=== PATIENT | male | born 1960 | race Hispanic/Latino ===

== ENCOUNTER 2016-09-04 20:36 | Emergency (ER) | payer OTHER ==
[~2016-09-04] VITALS: Ht 160 cm; Wt 59.0 kg
[~2016-09-04 20:36] MED LIST: TYLENOL #31 TAB PO
[2016-09-04 20:51] VITALS: BP 105/58
[2016-09-04] MEDS ORDERED: ZETIA10 M1 PO (20:52)
--- NOTE | 2016-09-04 21:15 | ED UPPER/LOWER EXTREMITY COMPL ---
History of Present Illness General Chief Complaint: General Adult Stated Complaint: "ONE OF MY FINGERS ARE ALWAYS COLD" Source: patient Exam Limitations: no limitations Vital Signs & Intake/Output Vital Signs & Intake/Output Vital Signs Date Time Temp Pulse Resp B/P Pulse O2 O2 Flow FiO2 Ox Delivery Rate 09/04 2050 97.3 75 16 105/58 98 Room Air Room Air ED Intake and Output 09/05 0000 09/04 1200 Intake Total 0 Output Total Balance 0 Intake, Oral 0 Patient 130 lb Weight Allergies Coded Allergies: NO KNOWN ALLERGIES (09/04/16) Reconcile Medications Ezetimibe (Zetia) 10 MG TABLET 1 TAB PO DAILY CHOL (Reported) Tylenol With Codeine (Tylenol With Codeine #3 Tablet) 300 MG-30 MG TABLET 1 TAB PO Q6 PAIN Triage Note: PT TO TRIAGE WITH LEFT WRONG RINGER PAIN AND A FEELING OF COLDNESS OR 2 WEEKS. PT STATES ITS ESPECIALLY BAD WHEN HE GOES OUT SIDE. DENIES CHANGE IN SENSATION. Triage Nurses Notes Reviewed? yes HPI: This patient is a 56-year-old male who presented to the emergency department today for evaluation left ring finger coldness. The patient reported that he has had intermittent feeling of cold in his left ring finger times one week. The patient reported that the coldness is worse when he goes out in the cold and sometimes he feels a, "pressure," and the tip of his ring finger. He denied any pain. The patient reported that he did have an appointment with his primary care physician this week, but did not address this issue. He reported that his wanted him to come to the emergency department the evening for an EKG and to make sure that this was not a problem with his heart. The patient denied any radiation of the pain. No arm pain. No numbness or tingling in his extremity. No chest pain. No palpitations. No difficult breathing. No abdominal pain. No fevers or chills. (SPEEDY GARCIA,FITO) Past History Travel History Traveled to [place] past 21 day No Medical History Any Pertinent Medical History? 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 No (FITO RUFF PA-C) Review of Systems Review of Systems Constitutional: Reports: no symptoms. EENTM: Reports: no symptoms. Respiratory: Reports: no symptoms. Cardiovascular: Reports: no symptoms. Gastrointestinal/Abdominal: Reports: no symptoms. Genitourinary: Reports: no symptoms. Musculoskeletal: Reports: no symptoms. Skin: Reports: see HPI. Neurological/Psychological: Reports: see HPI. All Other Systems: Reviewed and Negative (FITO RUFF PA-C) Physical Exam Physical Exam General Appearance: well developed/nourished, no apparent distress, alert, awake Comments: Well-developed well-nourished person in no acute distress HEENT: Normal EENT exam, moist mucous membranes Pupils equally round and reactive to light. Neck: Supple Back: Normal gait Cardiovascular: Regular rate and rhythm with no murmurs, rubs, or gallops. No carotid bruits Respiratory: Chest nontender. No respiratory distress. Breath sounds clear to auscultation bilaterally with no wheezes, rales, or rhonchi Left hand: Full range of motion of the digits. No bony or muscular deformities noted. No effusions or overlying erythema or ecchymosis to the joint spaces. No tenderness to palpation. Radial pulse 2+ and strong. Capillary refill less than 2 seconds. Sensation intact Neuro: Alert oriented x3, motor sensory normal, cranial nerves II through XII grossly intact. Skin: No appreciable rash on exposed skin, skin is warm and dry. Psych: Mood and affect is normal (FITO RUFF PA-C) Progress Differential Diagnosis: arterial insufficiency, cellulitis, compartment syndrome , contusion, dislocation, fracture, gout, septic arthritis, sprain, RAYNAUD'S SYNDROME, acs Plan of Care: Orders Procedure Date/time Status TROPONIN LEVEL 09/04 2109 Complete COMPREHENSIVE METABOLIC PANEL 09/04 2109 Complete CBC WITHOUT DIFFERENTIAL 09/04 2109 Complete EKG 09/04 2109 Active Laboratory Tests 09/04/162125: Anion Gap 9, Estimated GFR > 60, BUN/Creatinine Ratio 25.0, Glucose 116 H, Calcium 9.0, Total Bilirubin 0.3, AST 20, ALT 47, Alkaline Phosphatase 115, Troponin I < 0.01, Total Protein 6.0 L, Albumin 3.5, Globulin 2.5, Albumin/ Globulin Ratio 1.4, CBC w Diff NO MAN DIFF REQ, RBC 4.32 L, MCV 92.1, MCH 31.0, RDW 13.6, MPV 8.9, Gran % 65.3, Lymphocytes % 25.9, Monocytes % 7.4, Eosinophils % 0.6, Basophils % 0.8, Absolute Granulocytes 6.7 H, Absolute Lymphocytes 2.7, Absolute Monocytes 0.8 H, Absolute Eosinophils 0.1, Absolute Basophils 0.1, PUBS MCHC 33.7 Initial ED EKG: normal axis, normal intervals, normal sinus rhythm, no ST T wave changes, 66 BPM (SPEEDY GARCIA,FITO) Departure Departure Disposition: HOME OR SELF CARE Condition: Stable Clinical Impression Primary Impression: Sensation of cold in finger Referrals: HANNAH GARZA APRN Additional Instructions: Please call your primary care physician tomorrow to schedule a follow-up appointment. Limit exposure of your hand to cold weather when possible. Return for any worsening symptoms or concerns. Departure Forms: Customer Survey General Discharge Information (FITO RUFF PA-C) PA/CLERK ENTRY LEVEL Co-Sign Statement Statement: ED Attending supervision documentation- [] I saw and evaluated the patient. I have also reviewed all the pertinent lab results and diagnostic results. I agree with the findings and the plan of care as documented in the PA's/CLERK ENTRY LEVEL's documentation. [X I have reviewed the ED Record and agree with the PA's/CLERK ENTRY LEVEL's documentation. [] Additions or exceptions (if any) to the PAs/CLERK ENTRY LEVEL's note and plan are summarized below: [] (RAMAN ISRAEL,LEROY Deras)
[2016-09-04 21:46] LABS: ABSOLUTE BASOPHIL COUNT 0.1 /CUMM (0.0-0.2); ABSOLUTE EOSINOPHIL COUNT 0.1 /CUMM (0.0-0.7); ABSOLUTE GRANULOCYTE CT 6.7 /CUMM (1.4-6.5); ABSOLUTE LYMPH COUNT 2.7 /CUMM (1.2-3.4); ABSOLUTE MONOCYTE COUNT 0.8 /CUMM (0.10-0.60); BASOPHIL % 0.8 % (0.0-2.0); EOSINOPHIL % 0.6 % (0-5); GRANULOCYTE % 65.3 % (42.2-75.2); HEMATOCRIT 39.8 % (42-52); MEAN CORPUSCULAR HGB CONC 33.7 G/DL (33.0-37.0); MEAN CORPUSCULAR VOLUME 92.1 FL (80.0-94.0); MEAN PLATELET VOLUME 8.9 FL (7.4-10.4); PLATELET COUNT 338 /CUMM (130-400); RBC DISTRIBUTION WIDTH 13.6 % (11.5-14.5); RED BLOOD CELL CT 4.32 /CUMM (4.70-6.10); WHITE BLOOD CELL COUNT 10.2 /CUMM (4.8-10.8)
== END 2016-09-04 22:18 ==
LOC: ERH 20:36
PROVIDERS: Physician Assistant
DX: R20.8 Other disturbances of skin sensation (principal)
CPT/HCPCS: 93005; 93010

== ENCOUNTER 2016-12-16 18:19 | Emergency (ER) | payer OTHER ==
[~2016-12-16 18:19] MED LIST changes: +ZETIA10 M1 PO
--- NOTE | 2016-12-16 18:40 | ED CARDIAC/CP/PALPITATIONS ---
History of Present Illness General Chief Complaint: Chest Pain Stated Complaint: CP,LT ARM DISCOMFORT Source: patient, family, old records Exam Limitations: no limitations Vital Signs & Intake/Output Vital Signs & Intake/Output Vital Signs Date Time Temp Pulse Resp B/P B/P Pulse O2 O2 Flow FiO2 Mean Ox Delivery Rate 12/16 2245 96.5 73 16 119/80 96 Room Air 12/16 2103 98.2 84 17 128/72 98 Room Air 12/16 1903 80 16 131/69 96 Room Air 12/16 1847 98 12/16 1836 98.8 86 16 121/75 96 Room Air ED Intake and Output 12/17 0000 12/16 1200 Intake Total 0 Output Total Balance 0 Intake, Oral 0 Patient 134 lb Weight Weight Standing Scale Measurement Method Allergies Coded Allergies: NO KNOWN ALLERGIES (09/04/16) Triage Note: TRIAGE: L SIDED CP RADIATING INTO L SHOULDER X20 MINS. STATES HE WAS PLAYING WITH CHILDREN BUT DENIES STRENUOUS ACTIVITY. DENIES SOB OR DIAPHORESIS. Triage Nurses Notes Reviewed? yes HPI: Patient is a 56-year-old male presents complaining of midsternal chest pain that radiates to his left upper extremity. Symptoms onset at approximately 6 PM today. Pain is a pressure sensation currently 3 out of 10, no exacerbating or alleviating factors. Patient has not taken any medication prior to arrival for her symptoms. Patient denies nausea, diaphoresis, dyspnea, lower extremity pain , lower extremity swelling. (UNA ESTEVEZ,RACHEL) Reconcile Medications Ezetimibe (Zetia) 10 MG TABLET 1 TAB PO DAILY CHOL (Reported) Ibuprofen (Advil) 200 MG CAPSULE 3 TAB PO PRN PAIN (Reported) Lidocaine 5 % ADH..PATCH 1 PAT TOP PRN PAIN (Reported) Nicotine (Nicotine Patch) 7 MG/24 HOUR PATCH.TD24 1 PAT TD DAILY SMOKING CESSATION (Reported) (CHARU ISRAEL,ISAIAH) Past History Travel History Traveled to [place] past 21 day No Medical History Any Pertinent Medical History? 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 No (RACHEL MARSHALL) Review of Systems Review of Systems Constitutional: Denies: chills, fever. EENTM: Reports: no symptoms. Respiratory: Denies: cough, short of breath. Cardiovascular: Reports: see HPI. GI: Denies: abdominal pain, nausea, vomiting. Genitourinary: Reports: no symptoms. Musculoskeletal: Reports: joint pain (hip, chronic, unchanged). Denies: back pain. Skin: Reports: no symptoms. Neurological/Psychological: Denies: headache, numbness, paresthesia. Hematologic/Endocrine: Denies: bruising, bleeding. Immunologic/Allergic: Denies: splenectomy. (RACHEL MARSHALL) Physical Exam Physical Exam General Appearance: well developed/nourished, alert, awake Head: atraumatic, normal appearance Eyes: Bilateral: normal appearance, PERRL, EOMI. Ears, Nose, Throat: normal pharynx, hearing grossly normal Neck: normal inspection, supple, full range of motion Respiratory: normal breath sounds, chest non-tender, no respiratory distress, lungs clear Cardiovascular: regular rate/rhythm, NO APPRECIABLE MURMUR Peripheral Pulses: 2+ radial (R), 2+ radial (L), 2+ dorsalis pedis (R), 2+ dorsalis pedis (L) Gastrointestinal: soft, non-tender Back: normal inspection, normal range of motion Extremities: normal inspection, normal capillary refill, normal range of motion, no edema, NO CALF TENDERNESS Neurologic/Psych: no motor/sensory deficits, awake, alert, oriented x 3, normal mood/affect Skin: intact, normal color, warm/dry Lymphatic: no anterior cervical yissel Core Measures ACS in differential dx? Yes ASA ordered for poss ACS? Yes-ordered Severe Sepsis Present: No Septic Shock Present: No (RACHEL MARSHALL) Progress Differential Diagnosis: AMI, aortic dissection, musculoskeletal pain, pneumonia, pneumothorax, PSVT, pulmonary embolism, unstable angina Plan of Care: Orders Procedure Date/time Status TROPONIN LEVEL 12/16 2150 Complete EKG 12/16 215 Active Telemetry/Virtual Office Assistant 12/16 1854 Active TROPONIN LEVEL 12/16 1835 Complete COMPREHENSIVE METABOLIC PANEL 12/16 1835 Complete CBC WITHOUT DIFFERENTIAL 12/16 183 Complete EKG 12/16 1820 Active Laboratory Tests 12/16/16 2146: Troponin I < 0.01 12/16/16 1851: Anion Gap 9, Estimated GFR > 60, BUN/Creatinine Ratio 24.4, Glucose 124 H, Calcium 9.2, Total Bilirubin 0.4, AST 21, ALT 55, Alkaline Phosphatase 128 H, Troponin I < 0.01, Total Protein 6.5, Albumin 4.1, Globulin 2.4, Albumin/ Globulin Ratio 1.7, CBC w Diff NO MAN DIFF REQ, RBC 4.67 L, MCV 91.7, MCH 30.8, RDW 13.8, MPV 8.4, Gran % 67.8, Lymphocytes % 22.0, Monocytes % 7.6, Eosinophils % 1.4, Basophils % 1.2, Absolute Granulocytes 7.0 H, Absolute Lymphocytes 2.3, Absolute Monocytes 0.8 H, Absolute Eosinophils 0.1, Absolute Basophils 0.1, PUBS MCHC 33.6 1924: Patient is now chest pain free after aspirin and 1 dose of 0.4 mg sublingual nitroglycerin 1954: Discussed with Dr. Aldana: if patient remains chest pain free then can obtain repeat ekg and troponin. If negative then can have follow up in the office tomorrow for stress test. 1999: Plan for repeat troponin and ekg discussed with patient and his son. Patient remains chest pain free. 2239: Results of repeat ekg and troponin discussed with patient. Patient remains symptom free. Appears stable for discharge with close outpatient follow up. Instructed to call Dr. Aldana tomorrow morning and to return to the ER if any return/worsening of symptoms. (RACHEL MARSHALL) Diagnostic Imaging: Viewed by Me: Radiology Read. Discussed w/RAD: Radiology Read. CXR Impression: no acute abnormality, no infiltrates, normal size heart, normal mediastinum Initial ED EKG: normal axis, normal intervals, normal p-waves, normal sinus rhythm, no ST T wave changes, 1mm q waves in the inferior leads, similar to previous ekg. 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 Call in the morning for appointment. Return to the ER if chest pain returns, difficulty breathing or worsening of symptoms. Departure Forms: Customer Survey General Discharge Information (RACHEL MARSHALL) PA/WET PAN OPERATOR Co-Sign Statement Statement: ED Attending supervision documentation- [X] I saw and evaluated the patient. I have also reviewed all the pertinent lab results and diagnostic results. I agree with the findings and the plan of care as documented in the PA's/WET PAN OPERATOR's documentation. [X] I have reviewed the ED Record and agree with the PA's/WET PAN OPERATOR's documentation. [] Additions or exceptions (if any) to the PAs/WET PAN OPERATOR's note and plan are summarized below: [] (CHARU ISRAEL,ISAIAH) Critical Care Note Critical Care Note Critical Care Time: non-applicable (RACHEL MARSHALL)
[2016-12-16] MEDS ORDERED: ADVIL200 M1 PO (18:46)
[2016-12-16] MEDS ORDERED: NICOTINE PATCH1 EAC1 TD (18:47)
[2016-12-16] MEDS ORDERED: LIDOCAINE1 EACH TOP (18:47)
[2016-12-16 18:58] LABS: ABSOLUTE BASOPHIL COUNT 0.1 /CUMM (0.0-0.2); ABSOLUTE EOSINOPHIL COUNT 0.1 /CUMM (0.0-0.7); ABSOLUTE LYMPH COUNT 2.3 /CUMM (1.2-3.4); ABSOLUTE MONOCYTE COUNT 0.8 /CUMM (0.10-0.60); BASOPHIL % 1.2 % (0.0-2.0); EOSINOPHIL % 1.4 % (0-5); GRANULOCYTE % 67.8 % (42.2-75.2); HEMATOCRIT 42.8 % (42-52); MEAN CORPUSCULAR HGB 30.8 PG (27.0-31.0); MEAN CORPUSCULAR HGB CONC 33.6 G/DL (33.0-37.0); MEAN CORPUSCULAR VOLUME 91.7 FL (80.0-94.0); MEAN PLATELET VOLUME 8.4 FL (7.4-10.4); PLATELET COUNT 300 /CUMM (130-400); RBC DISTRIBUTION WIDTH 13.8 % (11.5-14.5); RED BLOOD CELL CT 4.67 /CUMM (4.70-6.10); WHITE BLOOD CELL COUNT 10.3 /CUMM (4.8-10.8)
--- NOTE | 2016-12-16 19:45 | RADIOLOGY REPORT ---
EXAMINATION: XR PORTABLE CHEST CLINICAL INFORMATION: Chest pain. COMPARISON: Multiple priors, most recent chest radiographs dated 12/09/2015. TECHNIQUE: Portable AP semiupright view of the chest was obtained. FINDINGS: No airspace consolidation. No pleural effusion or pneumothorax. Stable cardiomediastinal silhouette. No acute osseous abnormality. IMPRESSION: No acute cardiopulmonary process. No significant interval change since the prior examination.
[2016-12-16 22:45] VITALS: BP 119/80
== END 2016-12-16 22:46 ==
LOC: ERH 18:19
PROVIDERS: Emergency Medicine
DX: R07.89 Other chest pain (principal)
CPT/HCPCS: 93005; 93010; J3490

== ENCOUNTER → 2017-12-15 | Day surgery (SDC) | payer OTHER ==
[~2017-12-15] VITALS: Ht 157.5 cm; Wt 59.4 kg
[~2017-12-15] MED LIST changes: +ADVIL200 M1 PO; +HYDROXYZINE HCL50 M1 PO; +LEVAQUIN500 M1 PO; +LIDOCAINE1 EACH TOP; +NICOTINE PATCH1 EAC1 TD; +PREDNISONE10 M2 PO; +VALTREX1000 MG PO
--- NOTE | 2017-12-15 09:07 | Operative Report ---
Operative/Inv Procedure Report Surgery Date: 12/15/17 Name of Procedure: left ESWL Pre-Operative Diagnosis: left LP stone Post-Operative Diagnosis: same Estimated Blood Loss: scant Surgeon/Abrasive Water Jet Cutter Operator: Bridgette Mcgrath MD Anesthesia: local monitored anesthesi Complications: none Condition: stable Operative Indication: left renal stone Operative/Procedure Note Note: 57yo male with a history of left LP renal stone with renal colic. He was given the options of ESWL vs Ureteroscopy with laserlithotripsy and he opted for ESWL. He was given the risks, benefits and alternatives of the procedure. He wished to proceed and he signed the consent. The patient and his son had all their questions answered. Patient was taken to the operating room and placed in a supine position on the ESWL table. He was optimally positioned after time out was performed. No IV antibiotics were given. He had preop flouroscopy and US performed and was easily visible. He received a total of 2500 shocks broken up into 1-100 shocks at 1-10power, 101-250 shocks at 11-15 power, and 251-375 shocks at 16-20 power and finally 376-2500 shocks at 20. The stone fragmented very well by 400 shocks and continued further with the remaining shocks. Patient tolerated the procedure well. He was transferred to recovery room in stable condition. Findings: well fragmented 1cm stone in the left LP Discharge Disposition: Same Day Admissions
== END ==
LOC: STS 02:33
DX: N20.0 Calculus of kidney (principal); Z87.442 Personal history of urinary calculi; F17.200 Nicotine dependence, unspecified, uncomplicated; Z96.642 Presence of left artificial hip joint; M54.5 Low back pain; M51.9 Unspecified thoracic, thoracolumbar and lumbosacral intervertebral disc disorder
CPT/HCPCS: J0690